=== PATIENT | female | born 1960 | race Caucasian/White ===

== ENCOUNTER 2020-06-20 20:14 | Emergency (ER) | payer OTHER ==
[~2020-06-20 20:14] MED LIST: AEROECLIPSE II1 EACH MC; ALBUTEROL2.5 MG/3 M INH; ASPIRIN EC81 MG PO; ATROVENT HFA12.9 GM INH; BENTYL 20MG TAB20 MG PO; IBUPROFEN800 MG PO; IPRATROPIU0.2 MG/1 M INH; LODINE CAP 300300 MG PO; NORFLEX 100 MG100 MG PO; PREDNISONE20 MG PO; PROVENTIL HFA6.7 GM INH; ROBITUSSIN DM UD5 ML PO; TESSALON PERLE100 MG PO; ZOFRAN ODT 4 MG4 MG PO; [UNRECOGNIZED DRUG - REMARK]; [UNRECOGNIZED DRUG - REMARK] PO
[2020-06-20] MEDS ORDERED: NAPROSYN500 MG PO (21:30)
== END 2020-06-20 21:44 | disposition home or self-care (01) ==
LOC: ER1 20:14
DX: S40.012A Contusion of left shoulder, initial encounter (principal); S40.011A Contusion of right shoulder, initial encounter; Z88.2 Allergy status to sulfonamides; W20.8XXA Other cause of strike by thrown, projected or falling object, initial encounter; Y92.89 Other specified places as the place of occurrence of the external cause; Y99.0 Civilian activity done for income or pay
CPT/HCPCS: 73030; 96372; 99283; J1885

== ENCOUNTER 2020-12-26 15:04 | Emergency (ER) | payer BC ==
[~2020-12-26 15:04] MED LIST changes: +NAPROSYN500 MG PO
[2020-12-26 16:56] LABS: RED BLOOD COUNT 4.72 M/UL (4.00-5.10)
[2020-12-26 17:24] LABS: BUN/CREATININE RATIO 19 (0-10)
[2020-12-26] MEDS ORDERED: PREDNISONE 50 M50 MG PO (19:43)
== END 2020-12-26 20:28 | disposition home or self-care (01) ==
LOC: ER1 15:04
PROVIDERS: Physician Assistant Medical
DX: J04.0 Acute laryngitis (principal); R05 Cough; Z20.822 Contact with and (suspected) exposure to COVID-19; Z90.49 Acquired absence of other specified parts of digestive tract
CPT/HCPCS: 71046; 80053; 85025; 94664; 96372; 99283; J2930; U0002